=== PATIENT | female | born 1985 | race Caucasian/White ===

== ENCOUNTER 2019-11-20 02:03 | Inpatient (IN) | payer SELFPAY ==
[2016-11-24 09:29] VITALS: BMI 20.3
[2019-11-20] VITALS (17 sets, daily range): BP systolic 100–126; BP diastolic 57–92; PULSE 57–84; RESP 16; TEMP 36.2–37.7; O2SAT 94–98; BMI 22.8
[2019-11-20] MEDS: Lactated Ringers 1,000 ML 200 ML IV (02:10)
[2019-11-20 02:36] LABS: Absolute Lymphocyte Count 0.99 X10^3/uL (0.83-4.51); Absolute Neutrophil Count 5.3 X10^3/uL (2.0-7.7); Basophil# 0.03 X10^3/uL; Basophil% 0.4 % (0-1); Eosinophil# 0.05 X10^3/uL; Eosinophils% 0.7 % (0-5); Hematocrit 39.4 % (37-47); Hemoglobin 12.8 g/dL (12.0-15.0); Lymphocyte # 0.99 X10^3/ul (4.0); Lymphocyte % 14.5 % (19-41); Mean Corp Hgb Conc 32.5 g/dL (32-36); Mean Corpuscular Hgb 31.3 pg (27.0-32.0); Mean Corpuscular Volume 96.3 fL (81-99); Mean Platelet Vol. 10.2 fl (6.2-12.0); Monocyte# 0.42 X10^3/uL; Monocyte% 6.1 % (0-10); NRBC Flagged by Analyzer 0 % (0-5); Neutrophil # 5.31 X10^3/uL (2.7-7.7); Neutrophil % 77.9 % (47-70); Platelet Count 176 K/mm3 (150-450); RBC Distribution Width CV 13.4 % (11.6-14.6); RBC Distribution Width SD 47.3 fl (35.1-43.9); Red Blood Count 4.09 M/mm3 (4.2-5.4); White Blood Count 6.8 K/mm3 (4.4-11.0)
[2019-11-20] MEDS: Oxytocin 30 units/NS 500 ml 30 UNITS/500 ML IV.SOLN 334 UNITS IV (03:30)
[2019-11-20] MEDS: Methylergonovine 0.2 MG/ML Ampul IM (03:41)
[2019-11-20] MEDS: miSOPROStol 200 MCG Tablet 1000 MCG RECTAL (03:50)
--- NOTE | 2019-11-20 03:58 | PCM.HP.OB ---
- Problem List (1) 37 weeks gestation of Status: Acute (2) Multiparous Status: Acute (3) History of GBS (group B streptococcus) UTI, currently Status: Acute (4) History of hemorrhage Status: Acute (5) History of retained placenta Status: Acute History Date of Admission: 11/24/16 Final KATE: 12/05/19 Gestational age: 37 Weeks and 6 Days History of this : This is a 34 year-old, G 4, P 2012, at 37 weeks gestational age who presents in active labor after SROM at home, and 9.5 cm dilated. No vb. Good FM. Medical History: Medical History (Last Updated 11/20/19 @ 04:[address] Kianna Hinkle DO) History of blood transfusion Z92.89 Surgical History: Surgical History (Last Updated 11/20/19 @ 04:[address] Kianna Hinkle DO) History of D&C Z98.890 Allergies No Known Allergies Allergy (Verified 10/09/14 00:11) Home Medications: Home Medications Vits [Prenatabs FA ] 1 tablet PO DAILY 10/12/14 Doxycycline 100 mg PO BID #13 capsule 11/24/16 Smoking Status: Never smoker Number of Fetus(es): 1 NST - FHR Rate Baby A FHR Category:: Category II Uterine Activity:: Ctx q 1-2 min History Past Pregnancies: Past Pregnancies Delivery Date Name GA/ Weeks Outcome Route Wt Infant Sex Labor Length Anesthesia Delivery Location Provider FOB Labs: See [facility] records Expected Infant Delivery Method: Spontaneous Vaginal Review of Systems Gynecological: Denies: Vaginal bleeding Physical Exam Vitals: Vital Signs Temp Pulse BP Pulse Ox 99.3 F H 65 111/66 94 11/20/19 02:08 11/20/19 03:50 11/20/19 03:49 11/20/19 03:50 General: Alert, No apparent distress HEENT: Atraumatic Abdomen: Soft, Non Tender, Gravid Extremities:: No edema Neurological: Neuro grossly intact [employer]: Normal external genitalia Estimated gestational size: Appropriate for gestational size Presentation: Cephalic Cervix Dilation (cm): 10 Station: 0 Effacement (%): 100 Assessment/Plan All Active Problems 37 weeks gestation of (Acute) Multiparous (Acute) History of GBS (group B streptococcus) UTI, currently (Acute) History of hemorrhage (Acute) History of retained placenta (Acute) This is a 34 year-old, G 4, P 2, at 37 weeks gestational age who presents in active labor after SROM at home. - Routine intrapartum care - GBS positive - EFW < 4500g and pelvis adequate - Anticipate
--- NOTE | 2019-11-20 04:06 | PCM.OPRPT ---
Problem List (1) 37 weeks gestation of Status: Acute (2) Multiparous Status: Acute (3) History of GBS (group B streptococcus) UTI, currently Status: Acute (4) History of hemorrhage Status: Acute (5) History of retained placenta Status: Acute Report of Operation Date of Procedure: 11/20/19 Pre-Operative Diagnosis: 37 week gestation, SROM, active labor Post-Operative Diagnosis: As above Surgery/Procedure Performed:: . Manual extraction of retained placenta and TAUS Description of Surgical Findings:: VMI in OA position. Intact perineum. Retained pieces of placenta noted anteriorly upon manual exploration, and pieces were manually removed. TAUS performed- difficult to get a measurement of the endometrial thickness, endometrium is not complex appearing and there is no increased blood flow. Type of Anesthesia:: None Special Medications: Methergine and Cytotoc given Specimen's removed: Placenta Drains: None Estimated Blood Loss (mL): 400 Description of Procedure: Patient presented at 9 and half centimeters dilated. Patient was complete and pushing. Head of delivered in occiput anterior position over intact perineum. Shoulders followed by body of viable male were delivered without any force or delay. Infant was delivered atraumatically and placed on maternal abdomen. Cord was clamped and cut after a 60 sec delay by the father of the baby. With fundal massage the placenta was delivered. Placenta was noted to be normal-appearing with a small area of placental tissue missing measuring about 2 x 3 cm in size. Three-vessel cord. Uterus was manually explored 4 times. Several small pieces of placental tissue were removed from the anterior wall of the uterus. The last time the uterus was explored, no additional placental tissue was noted. Fundus firm and bleeding was hemostatic. Methergine given. Rectal Cytotec placed. Transabdominal ultrasound was performed with no concern for retained placenta. Grafts/Implants Used: None - Complications None - Admit VTE Documentation VTE Present on Admission: No Vaginal Delivery Maternal Presentation: Active Labor, Spontaneous Rupture of Membranes Amniotic Membrane Rupture Type: Spontaneous at home Amniotic Fluid Description: Clear Surgery/ Procedure Performed: Spontaneous Vaginal Delivery Type of Anesthesia: None Presentation: Vertex Cord Vessel Description: 3 Vessels Cord Entanglement: None Infant A gender: Male (1 minute): 8 (5 minute): 9 Episiotomy Description: None Laceration: None Medications given after delivery: IV Pitocin, IM Methergin, - - Cytotec Complications: None
[2019-11-20] MEDS: Cefazolin 2 GM in 0.9% Normal Saline 100 ML IV (05:18)
[2019-11-20] MEDS: Ibuprofen 600 MG Tablet PO ×3 (05:38→20:53)
[2019-11-20] MEDS: 0.9% Saline Lock 10 ML Syringe IV (16:08)
[2019-11-21 03:30] VITALS: BP 92/55; PULSE 63; RESP 16; TEMP 36.6
[2019-11-21 08:44] VITALS: BP 97/63; PULSE 64; RESP 16; TEMP 36.4
[2019-11-21] MEDS: Acetaminophen 500 MG Tablet 1000 MG PO (10:34)
--- NOTE | 2019-11-21 11:43 | PCM.PN.OB ---
Patient Problems: Active and Suspected Problems (Last Updated 11/20/19 @ 04:[address] Kianna Hinkle, DO) 37 weeks gestation of (Acute) Multiparous (Acute) History of GBS (group B streptococcus) UTI, currently (Acute) History of hemorrhage (Acute) History of retained placenta (Acute) Subjective: Doing well per patient and nursing staff. Ambulating and taking PO without difficulty. Voiding and passing flatus. Pain controlled. . Lochia normal. Planning D/C home today. - Physical Exam Vitals/I&O's: Vital Signs Temp Pulse Resp BP Pulse Ox 97.5 F L 64 16 97/63 94 11/21/19 08:44 11/21/19 08:44 11/21/19 08:44 11/21/19 08:44 11/20/19 03:50 Oxygen Delivery Method Bi-pap Weight: 137 lb Body Mass Index (BMI) 22.8 Intake and Output for Last 24 Hours 11/19/19 11/20/19 11/21/19 23:59 23:59 23:59 Intake Total 876.67 / 876.67 Output Total 650 / 650 Balance 226.67 / 226.67 General: Alert, Oriented x3, Cooperative HEENT: Atraumatic, PERRLA Neck: Trachea Midline Lungs: Clear to auscultation, Normal air movement, No rhonchi, No wheeze Cardiovascular: Regular rate, Regular Rhythm, No murmurs Abdomen: Bowel Sounds Present - Fundus firm 3 below U Extremities: No edema Psych/Mental Status: Normal Affect, Appropriate Current Medications Acetaminophen (Tylenol) 1,000 mg PO Q8H PRN PRN PRN Reason: Pain Score 1-10/10 Last Admin: 11/21/19 10:34 Dose: 1,000 mg Documented by: Bisacodyl (Dulcolax) 10 mg RECTAL UD PRN PRN Reason: If no BM Dibucaine (Dibucaine) 1 applic TOPICAL TID PRN PRN; Protocol PRN Reason: Discomfort Hydrocortisone (Hytone) 1 applic TOPICAL TID PRN PRN; Protocol PRN Reason: Discomfort Ibuprofen (Motrin) 600 mg PO Q6H PRN PRN PRN Reason: Pain Score 1-10/10 Last Admin: 11/20/19 20:53 Dose: 600 mg Documented by: Methylergonovine Maleate (Methergine) 0.2 mg IM X1 PRN PRN Reason: Excess bleeding/uterine atony Last Admin: 11/20/19 03:41 Dose: 0.2 mg Documented by: Ondansetron HCl (Zofran) 4 mg IV Q4H PRN PRN PRN Reason: Nausea Senna/Docusate Sodium (Senokot-S, Lissa-Colace) 1 - 2 tablet PO DAILY PRN PRN PRN Reason: Constipation Simethicone (Mylicon) 80 mg PO PCHS PRN PRN Reason: Indigestion/Stomach pain Sodium Chloride () 5 - 15 ml IV UD PRN PRN Reason: SALINE FLUSH Last Admin: 11/20/19 16:08 Dose: 10 ml Documented by: Medical Necessity - Tobacco Use Smoking Status: Never smoker Assessment/Plan All Active Problems (Last Updated 11/20/19 @ 04:[address] Kianna Hinkle, DO) 37 weeks gestation of (Acute) Multiparous (Acute) History of GBS (group B streptococcus) UTI, currently (Acute) History of hemorrhage (Acute) History of retained placenta (Acute)
--- NOTE | 2019-11-21 11:45 | DCINST_ITS ---
Discharge Diet: No Restrictions Discharge Activity: Return to Normal Activity, May not drive while taking narcotic pain medications., May Shower May resume sexual activity in: 4-6 weeks Weight Bearing Status: Full weight bearing Additional Activity Instructions:: Nothing in the vagina for 4-6 weeks. You may return to work/school in 6 weeks. Call your doctor if your incision/area has: Continuous Slow Oozing, Sudden Increased Bleeding, Increased Pain/ Swelling, Increased Redness, Foul Smelling Discharge Call your doctor if you observe: Fever of 101 or Higher, Inability to urinate, Inability to have a bowel movement, Using more than one pad per hour, Shortness of breath, Chest pain, Increased palpitations (irregular heartbeat), Calf discomfort, Uncontrolled pain Additional Instructions: If you experience any of the following, contact your healthcare provider. * Bleeding that soaks a pad every hour for 2 hours * Fever 100.4 or higher * Unrelieved incision or abdominal pain * Swelling, redness, discharge or bleeding from your incision or episiotomy site * Your incision begins to separate * Problems urinating (including inability to urinate or burning while urinating). * Visual changes * Severe headache * Flu-like symptoms * Pain or redness in one of both of your breasts * Pain, warmth, tenderness or swelling in your legs, especially the calf area * Frequent nausea and vomiting * Symptoms of depression or anxiety If you experience any of the following, call 911 or go to the nearest Emergency Room. * Chest pain * Problems breathing * Seizure activity * Partial or complete paralysis of a body part, slurred speech, weakness or drooping of the face, or a sudden inability to walk or hold your balance Allergies/Adverse Reactions: Allergies No Known Allergies Allergy (Verified 10/09/14 00:11) Medications to take at Discharge Vits [Prenatabs FA ] 1 tablet PO DAILY 10/12/14 Please Follow Up With: Cherie James MD When: Call to make an appointment with your doctor in 2 weeks virtual visit and 6 weeks. Primary Care Physician: Care Physician,No Primary [Primary Care Provider] - Test Results: Test results from this visit will be discussed in further detail at your follow- up appointment, if applicable.
[2019-11-21 15:00] VITALS: BP 98/64; PULSE 72; RESP 16; TEMP 36.2
== END 2019-11-21 15:10 | disposition home or self-care (01) | DRG 807 ==
LOC: WPOUT 02:04 → WP 02:04
PROVIDERS: Admitting Provider Obstetrics & Gynecology; Visit Provider Obstetrics & Gynecology
DX: O99.824 Streptococcus B carrier state complicating childbirth (principal); O73.1 Retained portions of placenta and membranes, without hemorrhage; Z87.440 Personal history of urinary (tract) infections; Z3A.37 37 weeks gestation of pregnancy; Z37.0 Single live birth
CPT/HCPCS: 59025; 59050; 76815; 85025; 86850; 86900; 86901; 99218; J7120; A4216; G0378

== ENCOUNTER 2022-12-06 07:07 | Inpatient (IN) | payer SELFPAY ==
[2022-12-06] VITALS (31 sets, daily range): BP systolic 105–123; BP diastolic 56–77; PULSE 59–89; RESP 16; TEMP 36.5–37.3; O2SAT 96–98; BMI 22.9
[2022-12-06 04:44] LABS: ROM Internal Control Test YES-OK TO RESULT pt. (Internal QC); ROM Patient Test Negative (Negative); Record Kit Lot#, ROM+ K1374
[2022-12-06] MEDS: Lactated Ringers 1,000 ML 200 ML IV (07:35)
[2022-12-06 07:51] LABS: Absolute Lymphocyte Count 0.67 X10^3/uL (0.83-4.51); Absolute Neutrophil Count 6.1 X10^3/uL (2.0-7.7); Basophil# 0.02 X10^3/uL; Basophil% 0.3 % (0-1); Eosinophil# 0.02 X10^3/uL; Eosinophils% 0.3 % (0-5); Hematocrit 38.3 % (37-47); Hemoglobin 12.3 g/dL (12.0-15.0); Lymphocyte # 0.67 X10^3/ul (0.83-4.51); Lymphocyte % 9.4 % (19-41); Mean Corp Hgb Conc 32.1 g/dL (32-36); Mean Corpuscular Hgb 30.4 pg (27.0-32.0); Mean Corpuscular Volume 94.8 fL (81-99); Mean Platelet Vol. 10.2 fl (6.2-12.0); Monocyte# 0.33 X10^3/uL; Monocyte% 4.6 % (0-10); NRBC Flagged by Analyzer 0 % (0-5); Neutrophil # 6.06 X10^3/uL (2.7-7.7); Platelet Count 176 K/mm3 (150-450); RBC Distribution Width CV 14.2 % (11.6-14.6); RBC Distribution Width SD 48.7 fl (35.1-43.9); Red Blood Count 4.04 M/mm3 (4.2-5.4); White Blood Count 7.1 K/mm3 (4.4-11.0)
[2022-12-06 08:25] LABS: Syphilis Antibodies Non-reactive
--- NOTE | 2022-12-06 08:47 | HP.PCM.OB_ITS ---
HPI - General General Date of Admission: 12/06/22 HPI Narrative ROCIO GERMAIN, is a 37 F who presents with ctxs. Maternal Data Information Final KATE: 12/17/22 Gestational age: 38&3 [facility] Medical History (Updated 12/06/22 @ 08:[address] Se Francis MD) History of blood transfusion hemorrhage Retained placenta Superficial varicosities Home Medications vits,calcium no.78-iron fumarate-folic acid 29 mg-1 mg tablet (Prenatabs FA) 1 tab PO DAILY 10/12/14 [History Last Taken 12/05/22 09:00] ferrous sulfate 325 mg (65 mg iron) tablet (iron) 325 mg PO DAILY 12/06/22 [History Last Taken 12/04/22 09:00] Allergy/AdvReac Type Severity Reaction Status Date / Time No Known Allergies Allergy Verified 12/06/22 04:11 Surgical History (Updated 12/06/22 @ 04:56 by Isabel King) History of D&C [place] teeth extracted Social History Smoking Status: Never smoker History Elective abortions Hx Para 3 Spontaneous abortions Hx # Term Pregnancies Ectopic pregnancies Hx # Pregnancies Multiple births # of living children NST FHR Rate Baby A Baseline: 145 Variability:: Moderate Accelerations:: 15 x 15 Decelerations:: None Uterine Activity:: Q2-3 min Vital Signs Vital Signs Vital Signs: 12/06/22 03:55 12/06/22 03:55 12/06/22 03:58 Temperature Temperature Source Pulse Rate 81 Blood Pressure 119/75 BP Systolic 119 BP Diastolic 75 Pulse Ox 98 12/06/22 03:58 12/06/22 03:58 12/06/22 03:58 Temperature 98.6 F Temperature Source Temporal Pulse Rate 75 Blood Pressure BP Systolic BP Diastolic Pulse Ox 12/06/22 07:49 12/06/22 07:51 12/06/22 07:51 Temperature 99.0 F Temperature Source Pulse Rate 71 Blood Pressure 123/77 H BP Systolic 123 BP Diastolic 77 Pulse Ox 12/06/22 07:51 12/06/22 07:51 12/06/22 07:51 Temperature Temperature Source Temporal Pulse Rate 80 Blood Pressure BP Systolic BP Diastolic Pulse Ox 97 12/06/22 07:51 12/06/22 07:51 12/06/22 07:51 Temperature Temperature Source Pulse Rate 72 Blood Pressure 123/77 H BP Systolic 123 BP Diastolic 77 Pulse Ox 97 12/06/22 07:51 12/06/22 08:44 12/06/22 08:44 Temperature 99.0 F Temperature Source Pulse Rate 89 Blood Pressure 120/72 BP Systolic 120 BP Diastolic 72 Pulse Ox 12/06/22 08:44 12/06/22 08:44 12/06/22 08:44 Temperature 99.1 F Temperature Source Temporal Pulse Rate Blood Pressure BP Systolic BP Diastolic Pulse Ox 98 Weight Weight: 138 lb Body Mass Index (BMI) 22.9 Physical Exam Const alert, oriented x3 and no apparent distress Chest inspection of chest normal Resp normal respiratory effort GI soft to palpation, non-tender and non-distended external exam normal Narrative: cvx - 8/90/+1, AROM clear fluid Extremity normal to inspection Labs Labs Labs: Blood Type A POSITIVE Antibody Screen NEGATIVE Hct 38.3 % (37-47) Hgb 12.3 g/dL (12.0-15.0) Syphilis Total Ab Non-reactive Rhogam given: No Assessment & Plan (1) 38 weeks gestation of : COMMENT: @ 38&3 PLAN: Plan Admit to L&D Expectant management GBS negative EFW - less than 4500g, patient with adequate pelvis
[2022-12-06] MEDS: Oxytocin 15 Units/NS 250ml 15 UNITS/250 ML IV.SOLN 334 UNITS IV (09:20)
--- NOTE | 2022-12-06 09:32 | EX.PCM.OBRPT ---
Maternal Data Information Final KATE: 12/17/22 Gestational age: 38&3 Vaginal Delivery Maternal Presentation Maternal Presentation: Active Labor Operative Information Date of Procedure: 12/06/22 Pre-Operative Diagnosis: Labor Post-Operative Diagnosis: Same Surgery / Procedure Performed: Spontaneous Vaginal Delivery Type of Anesthesia: None Estimated Blood Loss: 300ml Findings Description of Procedure: Patient prepped & draped when C/C/+2. She pushed well to deliver the head. head gently guided to allow delivery of anterior and posterior shoulders. No excess traction placed on head. Body delivered and 3VC clamped & cut in delayed fashion. Placenta delivered with gentle traction and good uterine tone obtained. Presentation: BAILEY Amniotic Membrane Rupture Type: Artificial Amniotic Fluid Description: Clear Placental Delivery Description: Expressed Placenta Disposition: [facility] Specimen(s) Removed: Placenta Cord Vessel Description: 3 Vessels Cord Entanglement: None A Gender: Female (1 minute): 9 (5 minute): 10 Delayed Cord Clamping: Yes Post Vaginal Delivery Medications Given After Delivery: IV Pitocin Episiotomy Description: None Laceration: None Complication Complications: None
[2022-12-06] MEDS: 0.9% Saline Lock 10 ML Syringe IV ×2 (10:34→13:57)
--- NOTE | 2022-12-06 11:20 | NURSING ---
Pt refusing post delivery pitocin [address] Francis notified at this time but verbal order for Oxytocin 15 units in 250cc NS d/t hx of hemmorhage. Pt agreeable to IV order.
[2022-12-06] MEDS: Oxytocin 15 Units/NS 250ml 15 UNITS/250 ML IV.SOLN 83 UNITS IV (11:30)
[2022-12-06] MEDS: Ibuprofen 600 MG Tablet PO ×2 (12:53→22:12)
[2022-12-07 03:05] VITALS: BP 100/61; PULSE 73; RESP 16; TEMP 36.9
--- NOTE | 2022-12-07 04:14 | NURSING ---
pt called this RN into room for a clot she passed in her pad. Clot was length of an egg but flat and not the thickness of an egg. Pressed on pts stomach to feel her uterus and it was placed 2 below umbilicus and pretty firm but some massaging was used to assure uterus stayed firm. Other bleeding has been appropriate
[2022-12-07] MEDS: Ibuprofen 600 MG Tablet PO ×2 (04:18→13:45)
--- NOTE | 2022-12-07 07:50 | PCM.PN.OB ---
Subjective Subjective Pt is doing well. She noted she passed a blood clot earlier this morning, and bleeding has been slow since. She denies lightheadedness, dizziness, chest pain, shortness of breath, leg pain. She is ambulating and voiding without difficulty. She is tolerating regular diet without nausea or vomiting. She is breast-feeding with some nipple pain. She desires to go home today. Objective Data Objective Data Vital Signs: Vital Signs Temp Pulse Resp BP Pulse Ox O2 Del Method 98.4 F 73 16 100/61 96 Room Air 12/07/22 03:05 12/07/22 03:05 12/07/22 03:05 12/07/22 03:05 12/06/22 15:52 12/06/22 15:52 Oxygen Delivery Method Room Air Weight: 138 lb Body Mass Index (BMI) 22.9 Intake & Output: Intake and Output for Last 24 Hours 12/05/22 12/06/22 12/07/22 23:59 23:59 23:59 Intake Total 1470.00 / 1470.00 Output Total 900 / 900 Balance 570.00 / 570.00 Lab / Micro Data 12/06/22 07:35 Labs: Laboratory Results - last 24 hr 12/06/22 07:35: WBC 7.1, RBC 4.04 L, Hgb 12.3, Hct 38.3, MCV 94.8, MCH 30.4, MCHC 32.1, RDW Std Deviation 48.7 H, RDW Coeff of Chet 14.2, Plt Count 176, MPV 10.2, Immature Gran % (Auto) 0.400, Neut % (Auto) 85.0 H, Lymph % (Auto) 9.4 L, [place] % (Auto) 4.6, Eos % (Auto) 0.3, Baso % (Auto) 0.3, Absolute Neuts (auto) 6.1, Absolute Lymphs (auto) 0.67 L, Nucleated RBC % 0, Syphilis Total Ab Non-reactive, Blood Type A POSITIVE, Antibody Screen NEGATIVE Physical Exam Const alert and no apparent distress General Appearance: comfortable GI soft to palpation and non-tender GI Narrative: FF@U-2 Extremity no calf tenderness Assessment & Plan (1) Vaginal delivery: PLAN: The patient is day 1 from a vaginal delivery. She desires discharge today. Continue to monitor bleeding this morning and if lochia continues to be normal okay for discharge. Discharge instructions reviewed.
--- NOTE | 2022-12-07 07:53 | DCINST_ITS ---
Discharge Instructions Diet Discharge Diet: No restrictions Activity Discharge Activity: May Shower May resume sexual activity in: 6 weeks Weight Bearing Status: Weight bearing as tolerated Lifting Restrictions: nothing heavier than baby Dressing / Incision Call your doctor if you observe: Fever of 101 or Higher, Coldness, Increased Pain, Numbness or Tingling, Change in Color, Inability to urinate, Inability to have a bowel movement, Using more than 1 pad per hour, Shortness of breath, Dizziness, Fainting spells, Swelling in the ankles, Chest pain, Increased palpitations (irregular heartbeat), Calf discomfort and Uncontrolled pain Follow Up Care When: 1-2 weeks early 6 week exam Test Results: Test results from this visit will be discussed in further detail at your follow- up appointment, if applicable. Discharge Plan Admission Admit Date/Time: 12/06/22 07:07 Primary Reason for Your Visit: delivery Attending Provider: Se Francis Primary Care Provider: Sahra Lloyd Instructions Patient Instructions: After a Vaginal Discharge Orders/Prescriptions Prescriptions: Continued Prenatabs FA 1 TABLET tablet 1 tab PO DAILY ferrous sulfate [iron] 325 mg (65 mg iron) tablet 325 mg PO DAILY Referrals / Follow Up: Sahra Lloyd PA [Primary Care Provider] - Disposition Disposition (needs filled in before D/C Order can be placed): Home, Self Care
[2022-12-07 07:58] VITALS: BP 93/55; PULSE 71; RESP 16; TEMP 36.4
[2022-12-07 12:37] VITALS: BP 112/73; PULSE 73; RESP 16; TEMP 36.3
== END 2022-12-07 14:00 | disposition home or self-care (01) | DRG 807 ==
LOC: WPOUT 07:10 → WP 07:10
PROVIDERS: Admitting Provider Obstetrics & Gynecology; PCP Physician Assistant; Referring Provider Obstetrics & Gynecology; Visit Provider Obstetrics & Gynecology
DX: O26.23 Pregnancy care for patient with recurrent pregnancy loss, third trimester (principal); Z37.0 Single live birth; Z3A.38 38 weeks gestation of pregnancy
CPT/HCPCS: 59025; 59050; 84112; 85025; 86780; 86850; 86900; 86901; 99221; J7120; A4216; G0378